=== PATIENT | female | born 1945 | race Caucasian/White ===

== ENCOUNTER 2020-03-26 21:11 | Inpatient (IN) ==
[2020-03-26] MEDS ORDERED: Dexamethasone 4 MG/ML VIAL IVP ONE (21:58)
[2020-03-26] MEDS ORDERED: Fluticasone Propionate Nasal 50 MCG/SPRAY BOTTLE NS PRN (22:10)
[2020-03-26] MEDS ORDERED: Nitroglycerin 0.4 MG TAB.SUBL SL PRN (22:10)
[2020-03-26] MEDS ORDERED: GuaiFENesin/Dextromethorphan TABLET PO PRN (22:17)
[2020-03-27] MEDS ORDERED: *HR* Enoxaparin 40 MG/0.4 ML SYRINGE SQ SCH (06:00)
[2020-03-27 06:03] LABS: Basophils % 0.1 %; Hematocrit 37.6 % (35.3-44.9); Hemoglobin 12.5 g/dL (11.5-15.4); Immature Granulocytes % 1.2 % (0-4); Lymphocytes # 0.5 K/mcL (0.6-4.6); Lymphocytes % 4.7 %; Mean Corpuscular HGB Conc 33.2 g/dL (31.6-35.5); Mean Corpuscular Hemoglobin 28.9 pg (28.0-33.3); Mean Corpuscular Volume 86.8 fL (83.0-100.0); Mean Platelet Volume 9.9 fL (9.4-12.4); Monocytes % 9.1 %; Neutrophils # 9.5 K/mcL (1.6-8.9); Platelet Count 251 K/mcL (140-400); Red Blood Count 4.33 M/mcL (3.82-4.97); Red Cell Distribution Width 13.2 % (11.5-14.5); Segmented Neutrophils % 84.9 %; White Blood Count 11.1 K/mcL (4.3-11.1)
[2020-03-27 06:24] LABS: BUN/Creatinine Ratio 33 (6-26); Blood Urea Nitrogen 23 mg/dL (8-23); Calcium 9.1 mg/dL (8.6-10.3); Carbon Dioxide 32 mEq/L (23-29); Chloride 99 mEq/L (98-107); Glucose 144 mg/dL (70-105); Osmolality,Calculated 294 (280-300); Potassium 3.1 mEq/L (3.5-5.1); Sodium 139 mEq/L (136-145); eGFR For African Americans > 60 (> 60); eGFR For Non-African Americans > 60 (> 60)
[2020-03-27] MEDS ORDERED: carvediloL 25 MG TABLET PO SCH (08:00)
[2020-03-27 08:56] VITALS: BP 179/88
[2020-03-27] MEDS ORDERED: amLODIPine 5 MG TABLET PO SCH (09:00)
[2020-03-27] MEDS ORDERED: Verapamil ER (24 HR) 120 MG TABLET.ER PO SCH (09:00)
[2020-03-27] MEDS ORDERED: Azithromycin 250 MG TABLET PO SCH (09:00)
[2020-03-27] MEDS ORDERED: Dexamethasone 4 MG/ML VIAL IVP SCH (09:00)
[2020-03-27] MEDS ORDERED: Aspirin Enteric Coated 81 MG Tablet PO SCH (09:00)
[2020-03-27] MEDS ORDERED: lisinopriL 20 MG TABLET PO SCH (09:00)
[2020-03-27] MEDS ORDERED: hydroCHLOROthiazide 25 MG TABLET PO SCH (09:00)
[2020-03-27] MEDS ORDERED: Fenofibrate 54 MG TABLET PO SCH (09:00)
[2020-03-27] MEDS ORDERED: Budesonide/Formoterol 160/4.5 1 PUFF INH IH SCH (10:00)
[2020-03-27] MEDS ORDERED: Tiotropium 10 INH DOSE IH SCH (10:00)
== END 2020-03-27 08:40 | disposition left against medical advice (07) | DRG 177 ==
LOC: INPGRE 21:17
PROVIDERS: ADMIT Family Medicine; ATTEND Family Medicine